=== PATIENT | male | born 1970 | race Caucasian/White ===

== ENCOUNTER 2017-03-09 08:40 | Emergency (ER) | payer BC, OTHER ==
[~2017-03-09] VITALS: Ht 177.8 cm; Wt 104.5 kg
[2017-03-09 08:57] VITALS: BP 159/91
[2017-03-09] MEDS ORDERED: METO1TAB32 PO (09:02)
[2017-03-09] MEDS ORDERED: ASPI81CH PO (09:02)
[2017-03-09] MEDS ORDERED: CLOP75TA2 (09:02)
[2017-03-09] MEDS ORDERED: LISI2.5T3 (09:02)
[2017-03-09] MEDS ORDERED: PRAV20TA2 (09:02)
[2017-03-09] MEDS ORDERED: ACET30TAB PO (10:08)
--- NOTE | 2017-03-09 10:18 | REP ---
UNILATERAL RIBS, PA CHEST, FIVE VIEWS: HISTORY: Injury. COMPARISON: 02/06/2012. Linear density is present in the left lower lobe consistent with scar. The right lung is clear. The heart is normal in size. The pulmonary vasculature is normal in appearance. The bony structure is intact. IMPRESSION: No acute disease. Signed by Seth Perez MD 03/09/2017 10:36 A
== END 2017-03-09 10:22 | disposition home or self-care (01) ==
LOC: M ED 08:40
DX: S20.211A Contusion of right front wall of thorax, initial encounter (principal); W01.198A Fall on same level from slipping, tripping and stumbling with subsequent striking against other object, initial encounter; Y92.89 Other specified places as the place of occurrence of the external cause; Y93.89 Activity, other specified; Y99.8 Other external cause status; I10 Essential (primary) hypertension; I25.9 Chronic ischemic heart disease, unspecified; Z95.5 Presence of coronary angioplasty implant and graft; Z79.899 Other long term (current) drug therapy; Z79.82 Long term (current) use of aspirin

== ENCOUNTER 2019-10-11 08:26 | Emergency (ER) | payer OTHER, SELFPAY ==
[~2019-10-11] VITALS: Ht 177.8 cm; Wt 99.5 kg
[~2019-10-11 08:26] MED LIST: ACET-716 PO; ASPI81CH49 PO; CLOP75TA2; LISI2.5T2; METO1TAB32 PO; PRAV20TA2
[2019-10-11] MEDS ORDERED: ALPR0.5T3 (08:37)
[2019-10-11] MEDS ORDERED: METO1TAB32 (08:37)
[2019-10-11] MEDS ORDERED: LISI-542 (08:37)
[2019-10-11] MEDS ORDERED: PRAL1INJ2 (08:37)
[2019-10-11] MEDS: NITROGLYCERIN 0.4 MG SUBL TABLET SL PRN ×2 (08:58→09:16)
[2019-10-11] MEDS ORDERED: ASPIRIN 81 MG CHEW TABLET PO ONE (09:00)
[2019-10-11 09:02] LABS: BASO # 0.1 10^3/uL (0.0-0.2); BASO % 1.4 % (0.0-1.0); EOS # 0.2 10^3/uL (0.0-0.5); HEMATOCRIT 47.4 % (42.0-52.0); HEMOGLOBIN 16.7 g/dl (13.5-17.5); LYMPH # 2.1 10^3/uL (1.5-5.0); LYMPH % 24.2 % (24.0-44.0); MEAN CORPUSCULAR HEMOGLOBIN 30.8 pg (27.0-33.0); MEAN CORPUSCULAR HGB CONC 35.2 g/dl (32.0-36.5); MEAN CORPUSCULAR VOLUME 87.5 fl (80.0-96.0); MONO # 1.1 10^3/uL (0.0-0.8); MONO % 12.3 % (0.0-5.0); NEUTROPHILS # 5.2 10^3/uL (1.5-8.5); NEUTROPHILS % 59.3 % (36.0-66.0); PLATELET COUNT, AUTOMATED 208 10^3/uL (150-450); RED BLOOD COUNT 5.42 10^6/uL (4.30-6.10); WHITE BLOOD COUNT 8.8 10^3/uL (4.0-10.0)
--- NOTE | 2019-10-11 09:06 | REP ---
Portable chest x-ray: Single view. History: Chest pain. Comparison chest x-ray: March 09, 2017. Findings: Monitoring electrodes overlie the chest. Lungs are symmetrically aerated and free of infiltrate. Pleural angles are sharp. Heart size is normal. Pulmonary vasculature is not increased. No bony abnormality is seen. Impression: No active disease. Electronically Signed by Sergio Larson MD 10/11/2019 08:58 A
[2019-10-11 09:16] VITALS: BP 100/66
[2019-10-11 09:20] LABS: INR 1.12; PROTHROMBIN TIME 14.1 SECONDS (11.8-14.0)
[2019-10-11 09:33] LABS: ALBUMIN 4.2 GM/DL (3.2-5.2); ALT/SGPT 32 U/L (12-78); BILIRUBIN,DIRECT 0.3 MG/DL (0.0-0.2); BILIRUBIN,TOTAL 2.3 MG/DL (0.2-1.0); BLOOD UREA NITROGEN 10 MG/DL (7-18); CALCIUM LEVEL 9.4 MG/DL (8.5-10.1); CARBON DIOXIDE LEVEL 28 MEQ/L (21-32); CHLORIDE LEVEL 104 MEQ/L (98-107); CK-MB VALUE MASS < 1.0 NG/ML (<3.6); CPK CREATINE PHOSPHOKINASE 85 U/L (39-308); CREATININE FOR GFR 1.02 MG/DL (0.70-1.30); FREE T4 1.25 NG/DL (0.76-1.46); GLOMERULAR FILTRATION RATE > 60.0 (>56); GLUCOSE, FASTING 97 MG/DL (70-100); LIPASE 77 U/L (73-393); MB/CK RELATIVE INDEX 1.18 (< OR =4); POTASSIUM SERUM 4.6 MEQ/L (3.5-5.1); SODIUM LEVEL 138 MEQ/L (136-145); THYROID STIMULATING HORMONE 0.784 uIU/ML (0.358-3.740); TOTAL PROTEIN 7.7 GM/DL (6.4-8.2); TROPONIN I < 0.02 NG/ML (< 0.10)
[2019-10-11 10:24] LABS: D-DIMER QUANT 274.6 ng/ml (<500)
--- NOTE | 2019-10-11 11:12 | REP ---
REASON: Pain and swelling. DEEP VENOUS ULTRASONOGRAPHY LEFT THIGH, RULE OUT DVT: TECHNIQUE: Multiple ultrasonographic images of the deep venous structures of the thigh were obtained from the common femoral vein to the popliteal vein along with Doppler interrogation and color flow Doppler images. FINDINGS: There is no abnormal echogenic material seen within any of the visualized deep venous structures that would suggest acute thrombosis. Coaptation is unremarkable throughout. Doppler interrogation shows an expected response to respiratory variability and augmentation. The color flow images show what appears to be a normal vascular pattern throughout. IMPRESSION: There is no ultrasonographic evidence of deep venous thrombosis involving any of the visualized deep venous structures of the left thigh, as described above. Electronically Signed by Mustapha Eli DO 10/11/2019 11:21 A
[2019-10-11] MEDS ORDERED: ISOVUE-370 76% 100ML VIAL As Ordered ONE (12:49)
[2019-10-11 13:43] LABS: CK-MB VALUE MASS < 1.0 NG/ML (<3.6); CPK CREATINE PHOSPHOKINASE 67 U/L (39-308); MB/CK RELATIVE INDEX 1.49 (< OR =4); TROPONIN I < 0.02 NG/ML (< 0.10)
--- NOTE | 2019-10-11 14:21 | REP ---
CT ANGIOGRAM CHEST: TECHNIQUE: Axial contrast enhanced images from the thoracic inlet to the upper abdomen using 100 mL Isovue-370 intravenous contrast material with multiplanar reformations. There is no CT evidence of pulmonary embolism. There is no evidence of thoracic aortic aneurysm or dissection. There is no mediastinal, hilar, or chest wall lymphadenopathy. The heart is normal in size. There is no pleural or pericardial effusion. No acute infiltrate is seen in either lung. There are mild degenerative changes of the spine. IMPRESSION: No CT evidence of pulmonary embolism or acute pulmonary disease. Electronically Signed by Papa Syed MD 10/11/2019 02:44 P
[2019-10-11 15:11] VITALS: BP 128/74
--- NOTE | 2019-10-11 18:35 | ECGEPIP ---
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
--- NOTE | 2019-10-11 18:40 | ECGEPIP ---
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
== END 2019-10-11 15:26 | disposition home or self-care (01) ==
LOC: M ED 08:26
DX: R07.9 Chest pain, unspecified (principal); M79.89 Other specified soft tissue disorders; M79.674 Pain in right toe(s); I11.9 Hypertensive heart disease without heart failure; I25.2 Old myocardial infarction; E78.5 Hyperlipidemia, unspecified; I25.10 Atherosclerotic heart disease of native coronary artery without angina pectoris; Z57.2 Occupational exposure to dust; Z95.5 Presence of coronary angioplasty implant and graft; Z87.891 Personal history of nicotine dependence; Z79.899 Other long term (current) drug therapy; Z79.82 Long term (current) use of aspirin; Z79.02 Long term (current) use of antithrombotics/antiplatelets
CPT/HCPCS: 71045; 71275; 80048; 80076; 82550; 82553; 83690; 84439; 84443; 84484; 84550; 85025; 85379; 85610; 85730; 93005; 93041; 93971; 94760; 99285; Q9967